=== PATIENT | male | born 1960 | race African-American/Black ===

== ENCOUNTER 2019-09-10 13:24 | Inpatient (IN) | payer OTHER ==
[~2019-09-10] VITALS: Ht 154.9 cm; Wt 63.5 kg
[2019-09-10 13:24] VITALS: BP 149/84
--- NOTE | 2019-09-10 13:24 | NUR ---
ED Nurse Note: PT WAS BROUGHT IN BY AMBULANCE FROM WORK FOR C/O DIZZINESS X 1 HOUR AGO.
--- NOTE | 2019-09-10 13:53 | NUR ---
ED Nurse Note: PT WENT TO CT VIA W/C ACCOMPANIED BY TECH.
[2019-09-10 13:59] LABS: BASOPHILS % (AUTO) 1.4 % (0.0-2.0); EOSINOPHILS % (AUTO) 0.2 % (0.0-3.0); HEMOGLOBIN 16.4 G/DL (14.2-18.0); LYMPHOCYTES % (AUTO) 30.5 % (20.0-45.0); MEAN CORPUSCULAR VOLUME 86 FL (80-99); MONOCYTES % (AUTO) 9.1 % (1.0-10.0); NEUTROPHILS % (AUTO) 58.8 % (45.0-75.0); PLATELET COUNT 165 K/UL (150-450); RED BLOOD COUNT 5.68 M/UL (4.70-6.10); RED CELL DISTRIBUTION WIDTH 12.5 % (11.6-14.8); WHITE BLOOD COUNT 4.4 K/UL (4.8-10.8)
--- NOTE | 2019-09-10 14:00 | NUR ---
ED Nurse Note: X-ray on bedside.
[2019-09-10 14:12] LABS: INR 1.1 (0.9-1.1)
--- NOTE | 2019-09-10 14:19 | NUR ---
ED Nurse Note: Pt able to pee on a urinal, obtained urine specimen, sent to labs.
[2019-09-10 14:24] LABS: ANION GAP 9 mmol/L (5-15); BLOOD UREA NITROGEN 12 mg/dL (7-18); CALCIUM 8.9 MG/DL (8.5-10.1); CARBON DIOXIDE 28 MMOL/L (21-32); CHLORIDE 102 MMOL/L (98-107); CREATININE 1.2 MG/DL (0.55-1.30); POTASSIUM 4.9 MMOL/L (3.5-5.1); SODIUM 139 MMOL/L (136-145)
[2019-09-10 14:29] LABS: ALANINE AMINOTRANSFERASE 32 U/L (12-78); ALBUMIN 3.7 G/DL (3.4-5.0); ALBUMIN/GLOBULIN RATIO 0.8 (1.0-2.7); ALKALINE PHOSPHATASE 95 U/L (46-116); ASPARTATE AMINO TRANSFERASE 38 U/L (15-37); BILIRUBIN,TOTAL 0.5 MG/DL (0.2-1.0)
--- NOTE | 2019-09-10 14:39 | Emergency Room Report ---
History of Present Illness General Chief Complaint: Dizziness Source: Patient Present Illness HPI Patient presents with complaints of general weakness and description of what sounds to be near syncope along with dizziness patient reports that he was at work going back and forth from different stations He started to feel very weak Low energy After he sat down he started to have some dizzy sensation Denies any headache denies any visual changes denies any chest pain or palpitations denies any change in medications denies any recent illness he was feeling at baseline levels upon awaking this morning And the patient symptoms essentially started about an hour prior to arrival approximately 1230 this afternoon Allergies: Coded Allergies: PENICILLINS (Verified Allergy, Unknown, 09/10/19) Patient History Past Medical History: see triage record Reviewed Nursing Documentation: PMH: Agreed; PSxH: Agreed Nursing Documentation-PMH Past Medical History: No History, Except For Hx Hypertension: Yes Review of Systems All Other Systems: negative except mentioned in HPI Physical Exam Vital Signs Date Time Temp Pulse Resp B/P (MAP) Pulse Ox O2 Delivery O2 Flow Rate FiO2 09/10/19 13:18 97.5 76 16 171/100 (123) 100 Room Air Sp02 EP Interpretation: reviewed, normal General Appearance: well appearing, no apparent distress Head: normocephalic, atraumatic Eyes: bilateral eye PERRL, bilateral eye EOMI ENT: hearing grossly normal, normal pharynx, TMs + canals normal, uvula midline Neck: full range of motion, supple, no meningismus, no bony tend Respiratory: lungs clear, normal breath sounds, no rhonchi, no respiratory distress, no retraction, no accessory muscle use Cardiovascular #1: normal peripheral pulses, regular rate, rhythm, no edema, no gallop, no JVD, no murmur Gastrointestinal: normal bowel sounds, non tender, soft, no mass, no organomegaly, non-distended, no guarding, no hernia, no pulsatile mass, no rebound Genitourinary: no CVA tenderness Musculoskeletal: normal inspection Neurologic: motor strength/tone normal, insole and outsole splitter III-XII nml as tested, oriented x3 , sensory intact, responsive Psychiatric: mood/affect normal Skin: no rash Lymphatic: normal inspection, no adenopathy Procedures Critical Care Time Critical Care Time 40 minutes for multiple re-evaluations critical findings requiring discussion with outside consultants not including any procedural time Medical Decision Making Diagnostic Impression: Primary Impression: CVA (cerebral vascular accident) ER Course Given the patient's history and presentation multiple differentials were in consideration including but not limited to cardiac, cardiopulmonary, neurologic neurosurgical process, Patient's blood work is at baseline levels however CT imaging showed multiple old infarcts patient is not aware of any previous infarcts or CVA Given these abnormal findings patient was recommended for inpatient care Patient's stroke scale is extremely low patient is verbal there is no speech deficit No obvious drift No obvious focal weakness Patient does not meet criteria for acute TPA Last known well was 12:30 Given the findings on the MRI during admission contact was made with [facility] I spoke to the neurologist on-call they also Do not recommend TPA for this presentation there is recommendation regarding further cardiac evaluation and work-up as well Labs Test 09/10/19 13:41 09/10/19 14:19 White Blood Count 4.4 K/UL (4.8-10.8) Red Blood Count 5.68 M/UL (4.70-6.10) Hemoglobin 16.4 G/DL (14.2-18.0) Hematocrit 49.0 % (42.0-52.0) Mean Corpuscular Volume 86 FL (80-99) Mean Corpuscular Hemoglobin 28.8 PG (27.0-31.0) Mean Corpuscular Hemoglobin Concent 33.4 G/DL (32.0-36.0) Red Cell Distribution Width 12.5 % (11.6-14.8) Platelet Count 165 K/UL (150-450) Mean Platelet Volume 6.7 FL (6.5-10.1) Neutrophils (%) (Auto) 58.8 % (45.0-75.0) Lymphocytes (%) (Auto) 30.5 % (20.0-45.0) Monocytes (%) (Auto) 9.1 % (1.0-10.0) Eosinophils (%) (Auto) 0.2 % (0.0-3.0) Basophils (%) (Auto) 1.4 % (0.0-2.0) Prothrombin Time 11.3 SEC (9.30-11.50) Prothromb Time International Ratio 1.1 (0.9-1.1) Activated Partial Thromboplast Time 25 SEC (23-33) Sodium Level 139 MMOL/L (136-145) Potassium Level 4.9 MMOL/L (3.5-5.1) Chloride Level 102 MMOL/L (98-107) Carbon Dioxide Level 28 MMOL/L (21-32) Anion Gap 9 mmol/L (5-15) Blood Urea Nitrogen 12 mg/dL (7-18) Creatinine 1.2 MG/DL (0.55-1.30) Estimat Glomerular Filtration Rate > 60 mL/min (>60) Glucose Level 110 MG/DL (74-106) Calcium Level 8.9 MG/DL (8.5-10.1) Total Bilirubin 0.5 MG/DL (0.2-1.0) Aspartate Amino Transf (AST/SGOT) 38 U/L (15-37) Alanine Aminotransferase (ALT/SGPT) 32 U/L (12-78) Alkaline Phosphatase 95 U/L (46-116) Troponin I 0.009 ng/mL (0.000-0.056) Total Protein 8.1 G/DL (6.4-8.2) Albumin 3.7 G/DL (3.4-5.0) Globulin 4.4 g/dL Albumin/Globulin Ratio 0.8 (1.0-2.7) Urine Color Pale yellow Urine Appearance Clear Urine pH 6.5 (4.5-8.0) Urine Specific [place] 1.005 (1.005-1.035) Urine Protein Negative (NEGATIVE) Urine Glucose (UA) Negative (NEGATIVE) Urine Ketones Negative (NEGATIVE) Urine Blood Negative (NEGATIVE) Urine Nitrite Negative (NEGATIVE) Urine Bilirubin Negative (NEGATIVE) Urine Urobilinogen Normal MG/DL (0.0-1.0) Urine Leukocyte Esterase Negative (NEGATIVE) Urine Opiates Screen Negative (NEGATIVE) Urine Barbiturates Screen Negative (NEGATIVE) Phencyclidine (PCP) Screen Negative (NEGATIVE) Urine Amphetamines Screen Negative (NEGATIVE) Urine Benzodiazepines Screen Negative (NEGATIVE) Urine Cocaine Screen Negative (NEGATIVE) Urine Marijuana (THC) Screen Negative (NEGATIVE) Rhythm Strip Diag. Results EP Interpretation: yes Rate: 77 Rhythm: NSR, no PVC's, no ectopy CT/MRI/US Diagnostic Results CT/MRI/US Diagnostic Results : Impression CT headImpression: Negative for acute intracranial bleed or mass effect Multiple old infarcts as described MRI brainMRI HEAD Without Contrast: COMPARISON: CT 09/10/19 Scattered small foci of restricted diffusion in the right temporoparietal region with associated T2 signal hyperintensity are concerning for acute infarcts. No acute intracranial hemorrhage or significant mass effect. Chronic and involutional changes. Last Vital Signs Date Time Temp Pulse Resp B/P (MAP) Pulse Ox O2 Delivery O2 Flow Rate FiO2 09/10/19 13:24 97.5 65 16 149/84 100 Room Air Status: improved Disposition: ADMITTED INPATIENT Condition: Serious Stephon Justin DO Sep 10, 2019 14:39
[2019-09-10 14:54] LABS: APPEARANCE,URINE CLEAR; BILIRUBIN, URINE NEGATIVE (NEGATIVE); COLOR,URINE PALE YELLOW; GLUCOSE, URINE (UA) NEGATIVE (NEGATIVE); KETONES,URINE NEGATIVE (NEGATIVE); LEUKOCYTE ESTERASE ,URINE NEGATIVE (NEGATIVE); NITRITE,URINE NEGATIVE (NEGATIVE); PH,URINE 6.5 (4.5-8.0); PROTEIN,URINE NEGATIVE (NEGATIVE); UROBILINOGEN,URINE NORMAL MG/DL (0.0-1.0)
--- NOTE | 2019-09-10 15:03 | Diagnostic Imaging Report ---
Indications: Unsteady gait for one hour, dizziness, syncope Technique: Spiral acquisitions obtained through the brain. Angled axial and coronal 5 x 5 mm slices were reconstructed. Total dose length product 1364 mGycm. CTDI vol(s) 60 mGy. Dose reduction achieved using automated exposure control Comparison: None. Findings: Multiple old infarcts are demonstrated, including in the left frontal convexity, the left anterior parietal convexity, left posterior parietal lobe, the right parietal convexity. Old lacunar infarct is seen in the right side of the midbrain and questionably a second in the right side of the toma. Normal caliber ventricles and extra-axial CSF spaces. There is minimal periventricular deep white matter low-attenuation consistent with chronic microvascular ischemic change. No acute intracranial hemorrhage or edema. No mass effect nor midline shift. The mastoids are clear. The sinuses are clear. There is evidence of prior bilateral cataract surgery. The calvarium is intact Impression: Negative for acute intracranial bleed or mass effect Multiple old infarcts as described The CT scanner at [facility] is accredited by the [employer] and the scans are performed using protocols designed to limit radiation exposure to as low as reasonably achievable to attain images of sufficient resolution adequate for diagnostic evaluation.
[2019-09-10 15:45] VITALS: BP 153/86
--- NOTE | 2019-09-10 19:05 | Diagnostic Imaging Report ---
Indication: Generalized weakness, near syncope Technique: sagittal T1 fast spin echo, axial T1 FLAIR, axial T2 FLAIR, axial T2 FS PROPELLER, axial T2* GRE, axial diffusion weighted images. ADC and exponential ADC maps generated Comparison: And CT from earlier the same day Findings: There is a small somewhat linear focus of restricted diffusion in the periphery of the right occipital lobe. There is a cluster of foci of restricted diffusion in the high right parietal lobe, as well as a few punctate foci of restricted diffusion within the posterior right frontal lobe. The largest cluster corresponds to a hypoattenuating area demonstrated on recent CT scan, indicating that this is a late subacute infarct. There is also associated high T1 signal. Old lacunar infarct is seen in the right side of the midbrain, also described on recent CT scan. Areas of encephalomalacia, consistent with old infarcts, are seen involving the junction of the left temporal, occipital, and parietal lobes, the high posterior right frontal lobe, the high left parietal convexity. There are old deep white matter lacunar infarcts in the left posterior frontal deep white matter and in the left gayle radiata. The vascular flow voids are preserved. No acute hemorrhage. A single focus of susceptibility artifact is seen in the left parasagittal parietal lobe, consistent with old microhemorrhage No mass effect nor midline shift. There is age-related enlargement of the ventricles and extra axial CSF spaces. There is evidence of prior bilateral cataract surgery. There is minimal ethmoid sinus disease noted.. Impression: Multiple foci of diffusion restriction involving the right occipital lobe, right parietal lobe, and posterior right frontal lobe. These are consistent with infarcts. Presence of associated findings on recent CT scan indicates that these are subacute. Multifocal appearance suggests embolic etiology. These appear to be within both the right middle cerebral and the right posterior arterial territories. No evidence of associated hemorrhage No acute bleed or mass effect. Single focus of susceptibility artifact in the posterior left parietal lobe indicates old microhemorrhage Multiple old infarcts, as described Age-related volume loss Minimal ethmoid sinus disease This agrees with the preliminary interpretation provided overnight by [facility] teleradiology service.
--- NOTE | 2019-09-10 19:14 | NUR ---
HAND-OFF: Report given to Leisa TORRES.
--- NOTE | 2019-09-10 19:16 | NUR ---
ED Nurse Note: Recieved report from BRIAN León.
--- NOTE | 2019-09-10 19:30 | NUR ---
ED Nurse Note: Belongings list completed and signed.
[2019-09-10 19:40] VITALS: BP 156/70
--- NOTE | 2019-09-10 20:15 | NUR ---
ED Nurse Note: Patient requested food, provided with sandwich and juice.
--- NOTE | 2019-09-10 21:16 | NUR ---
ED Nurse Note: Report given to BRIAN White in telemetry.
--- NOTE | 2019-09-10 21:24 | NUR ---
ED Nurse Note: Patient transferred to telemetry unit with ACLS protocol on cafeteria monitor via gurney accompanied by 1 RN and ecg technician in stable condition.
[2019-09-10 21:55] VITALS: BP 136/65
--- NOTE | 2019-09-10 21:55 | NUR ---
NURSE NOTES: Received report from BRIAN Chauhan. Patient was transferred from ED to telemetry via gurney accompanied by 2 staff member, without any incident. Patient ambulated to hospital bed with staff member assist. Placed on semi wright's; resting comfortably. Placed tele box, SR on the monitor, 76bpm. Vital signs taken T=97.7, NH=74, RR=20, ZP=562/65, O2 sat=97%. Denies pain at this time. No signs of acute distress noted. Body assessment done with no skin issues. Checked IV site and flushed. No erythema, bleeding or infiltration noted. Bed at lowest position, brakes on, siderailsx3. Call light within reach. Paged Dr. Reynoso for admitting orders, awaiting for callback. Will continue to monitor.
--- NOTE | 2019-09-10 22:30 | NUR ---
NURSE NOTES: Called Dr. Reynoso's office and spoke with irina Sebastian for admitting orders, awaiting for callback.
--- NOTE | 2019-09-10 23:00 | NUR ---
NURSE NOTES: Paged Dr. Reynoso for admitting orders, awaiting for callback.
--- NOTE | 2019-09-10 23:30 | NUR ---
NURSE NOTES: Recieved admitting orders from Dr. Reynoso. Noted and carried out.
[2019-09-11] VITALS: BP 107/55
--- NOTE | 2019-09-11 01:09 | NUR ---
NURSE NOTES: Resting throughout the night. No significant change of condition noted. Will continue to monitor.
[2019-09-11 04:00] VITALS: BP_SYST 129; BP_SYST 150; BP_DIAS 65; BP_DIAS 91
--- NOTE | 2019-09-11 07:09 | NUR ---
HAND-OFF: Report given to BRIAN Short. Plan of care endorsed.
--- NOTE | 2019-09-11 07:10 | NUR ---
NURSE NOTES: Received report from Cindy/RN, Patient is asleep, lying semi-wright's, resting comfortably. On room air, no acute distress/SOB noted. Able to make needs known, Denies pain at this time. IV on Right AC patent, no bleeding or infiltration noted. Bed in low position and locked, Bed alarm is on, Side-rails up x3. Call light within reach, Encouraged to use call light when needed. Will continue plan of care.
[2019-09-11 07:59] VITALS: BP 124/67
[2019-09-11] MEDS ORDERED: Lisinopril 10mg tab ORAL SCH (09:00)
[2019-09-11] MEDS ORDERED: LISINOPRIL5 MG ORAL (10:03)
--- NOTE | 2019-09-11 11:03 | Diagnostic Imaging Report ---
Indication: Abnormal chest sounds Technique: One view of the chest Comparison: none Findings: The heart is borderline enlarged. Lungs and pleural spaces are clear. Impression: Borderline cardiomegaly. No acute process
[2019-09-11 12:00] VITALS: BP 139/80
--- NOTE | 2019-09-11 12:45 | NUR ---
NURSE NOTES: Discharge instruction given, Patient verbalized understanding. front desk monitor and IV removed, no distress or bleeding noted. Belonging and prescription given to patient. Patient is in stable condition. Patient left with brother and via private vehicle.
--- NOTE | 2019-09-11 17:45 | History and Physical Report ---
DATE OF ADMISSION: 09/10/2019 HISTORY OF PRESENT ILLNESS: This is a 59-year-old male came to the emergency room for uncontrolled blood pressure. The patient is asymptomatic. The patient also claims he has been running out of his medication. The patient denies any fever or chills. Following at [facility] for his care. PAST MEDICAL HISTORY: Hypertension. MEDICATIONS: Lisinopril. ALLERGIES: NKA. PHYSICAL EXAMINATION: VITAL SIGNS: Current blood pressure 124/67, pulse 69. No fever. SKIN: Good skin turgor. HEENT: NAD. CHEST: Bilaterally clear. CARDIOVASCULAR: Regular rhythm. ABDOMEN: Soft, positive bowel sounds, nontender EXTREMITIES: CCE. NEUROLOGICAL: The patient has no focal deficit. LABORATORY DATA: White count 4.4, hemoglobin 16. Chemistry panel; BUN 12, creatinine 1.2, potassium 4.9. Troponins are negative. ASSESSMENT AND PLAN: Uncontrolled blood pressure. The patient's blood pressure is currently doing good. The patient is placed on lisinopril. The patient is physically doing better and asymptomatic. He is going to go home. Follow up as outpatient at [facility]. DIET: He is on 2 grams sodium diet. ACTIVITY: As tolerated. DISCHARGE MEDICATIONS: Patient was given prescription for lisinopril 10 mg p.o. b.i.d. 60 tablets and recommended to follow up with his primary care as an outpatient. Yo Reynoso M.D. DR: KIN JOB#: [id number] CC:
--- NOTE | 2019-09-16 12:12 | Discharge Summary ---
Discharge Summary Discharge Summary _ DATE OF ADMISSION: 09/10/2019 DATE OF DISCHARGE: 09/11/2019 DISCHARGED BY: Dr. Reynoso REASON FOR ADMISSION: 59 years old male with past medical history of hypertension, presented with uncontrolled blood pressure. Patient reported running out of his medication. No fever, no chills. No chest pain no palpitation, s, no shortness of breath. Patient follow-up at the [place] facility for his care. Laboratory work-up was unremarkable. Troponin was negative. EKG revealed sinus rhythm no acute ischemic changes. Blood pressure 171/100. Chest x-ray revealed borderline cardiomegaly, no acute cardiopulmonary pathology. CT of the head revealed no evidence of acute intracranial bleeding or mass infarct. Multiple old infarcts noted. MRI of the brain demonstrated no acute bleeding or mass-effect. Multiple old infarcts. Multiply foci of diffusion restriction involving the right occipital lobe, right parietal lobe and posterior right frontal lobe, consistent with infarcts. Presence of associated findings on recent CT scan indicated most likely subacute infarcts. Multifocal appearance was suggestive of embolic etiology. Patient admitted for further management. HOSPITAL COURSE: Patient admitted to telemetry floor. Patient was provided with aspirin. Antihypertensive medication regimen was optimized and consistent of multiply antihypertensive, including calcium channel lamine, beta-lamine and WILIAM inhibitor. Clonidine was on board as needed for blood pressure spikes. Prescription provided. Patient started on 2 g sodium diet. Patient advised to comply with the medication regimen and diet, and continue with the primary care provider pn a regular basis. Blood pressure stabilized, and prior to discharge 139/80. Patient clinically stabilized and was ready for discharge home. Due to rapid and unexpected improvement in patient condition, patient was discharged in 1 week. FINAL DIAGNOSES: Uncontrolled blood pressure/hypertensive urgency DISCHARGE MEDICATIONS: See Medication Reconciliation list. DISCHARGE INSTRUCTIONS: Patient was discharged home. Follow-up with a primary care provider in 1 week. I have been assigned to dictate discharge summary for this account. I was not involved in the patient's management. Erin Arguello NP Sep 16, 2019 12:12
== END 2019-09-11 12:45 | disposition home or self-care (01) | DRG 305 ==
LOC: EDBD 13:24 → EMR 15:58 → 2E 16:00 → EDBEDREQ 20:41 → 2E 21:29
DX: I16.0 Hypertensive urgency (principal); Z88.0 Allergy status to penicillin; I10 Essential (primary) hypertension
CPT/HCPCS: 36415; 70450; 70551; 71045; 80053; 80307; 81003; 82962; 84484; 85025; 85610; 85730; 93005; 96360; 99291; J7030